=== PATIENT | male | born 1960 | race Caucasian/White ===

== ENCOUNTER 2017-03-29 08:00 | Outpatient (RCR) | payer OTHER ==
[~2017-03-29 08:00] MED LIST: CLINORIL 1150 MG/TAB PO; GEMCOR600 MG PO; PREGABALIN; PRILOSEC
== END 2017-04-11 13:57 | disposition home or self-care (01) ==
LOC: MKS.ESL.PT 08:00
DX: M50.30 Other cervical disc degeneration, unspecified cervical region (principal); M43.07 Spondylolysis, lumbosacral region
CPT/HCPCS: G8990-GP; G8991-GP; G8992-GP